=== PATIENT | female | born 1945 | race Caucasian/White ===

== ENCOUNTER 2018-02-13 15:46 | Emergency (ER) | payer MEDICARE, OTHER ==
--- NOTE | 2018-02-13 16:53 | EDM.PDOC ---
ED HPI GENERAL MEDICAL PROBLEM - General Chief Complaint: General Stated Complaint: TRIPPED HURT HEAD, WRIST AND PINKY ON RT SIDE Time Seen by Provider: 02/13/18 16:00 Source of Information: Reports: Patient History Limitations: Reports: No Limitations - History of Present Illness INITIAL COMMENTS - FREE TEXT/NARRATIVE: 72-year-old woman who was helping her daughter move out of her residence. As she was going down steps she fell forward onto the cement. No loss of consciousness. She has mild headache no neck pain. And has a contusion laceration right frontal region is bleeding moderately and has a kerlix circumferential wrap around her head to stem the bleeding. No compromise of vision or trauma to her lower extremities. No previous CVA or TIA. She is on aspirin for anticoagulation as mitral valve prolapse and has pain in her right proximal fifth finger was dislocation of the PIP joint. No loss of sensation or finger. She denies chest pain other extremity to pain she has is total knee arthroplasty left side without pain as a superficial abrasion right knee. Tetanus is indeterminant Location: Reports: Head Severity: Mild Improves with: Reports: None Worsens with: Reports: None Associated Symptoms: Reports: No Other Symptoms - Related Data Allergies Allergy/AdvReac Type Severity Reaction Status Date / Time No Known Allergies Allergy Verified 02/13/18 16:06 Home Meds: Home Meds .Glipizide 1 tab PO BID 02/13/18 [History] Lisinopril 10 mg PO BEDTIME 02/13/18 [History] amLODIPine Besylate [Norvasc] 5 mg PO DAILY 02/13/18 [History] metFORMIN [Glucophage] 1,000 mg PO BIDMEALS 02/13/18 [History] ED ROS GENERAL - Review of Systems Review Of Systems: See Below Constitutional: Reports: Other (Headache) HEENT: Reports: Other Respiratory: Reports: No Symptoms Cardiovascular: Reports: No Symptoms Endocrine: Reports: No Symptoms GI/Abdominal: Reports: No Symptoms : Reports: No Symptoms, Incontinence (Mild headache with fall and pain frontal area of the contusion/laceration of her forehead) Musculoskeletal: Reports: No Symptoms Skin: Reports: No Symptoms Neurological: Reports: No Symptoms, Headache Psychiatric: Reports: No Symptoms Hematologic/Lymphatic: Reports: No Symptoms Immunologic: Reports: No Symptoms ED EXAM, GENERAL - Physical Exam Exam: See Below Free Text/Narrative:: This pleasant 72-year-old woman has mild pain discomfort and bleeding is arterial nature from a small arterial that periodically spurts if there is no pressured placed on the right usual forehead 3 cm laceration last contusion Exam Limited By: No Limitations General Appearance: Alert, Mild Distress Eye Exam: Bilateral Eye: Normal Inspection Ear Exam: Bilateral Ear: Auricle Normal, Canal Normal, TM normal Nose: Normal Inspection, Normal Mucosa, No Blood Throat/Mouth: Normal Inspection, Normal Lips, Normal Teeth, Normal Gums, Normal Oropharynx, Normal Voice Head: Atraumatic, Normocephalic Neck: Normal Inspection, Supple, Non-Tender, Full Range of Motion Respiratory/Chest: No Respiratory Distress, Lungs Clear, Normal Breath Sounds, No Accessory Muscle Use, Chest Non-Tender Cardiovascular: Normal Peripheral Pulses, Regular Rate, Rhythm, No Edema, No Gallop, No JVD, No Murmur, No Rub Peripheral Pulses: 1+: Brachial (L), Brachial (R), Dorsalis Pedis (L), Dorsalis Pedis (R) GI/Abdominal: Normal Bowel Sounds, Soft, Non-Tender, No Organomegaly, No Distention, No Abnormal Bruit, No Mass, Pelvis Stable (Female) Exam: Deferred Rectal (Female) Exam: Deferred Back Exam: Normal Inspection Extremities: Normal Inspection, No Pedal Edema, Normal Capillary Refill, Other Neurological: Alert, Oriented, CN II-XII Intact, Normal Cognition, Normal Gait, Normal Reflexes, No Motor/Sensory Deficits Psychiatric: Normal Affect ED GENERAL MEDICAL PROCEDURES - Additional/Other Procedure(s) Other (Free Text) Procedure(s): Right frontal laceration 3 cm long is horizontal in character and has above that a small superficial crush laceration has mild separation of the tissue which is 2 centimeters long. The wound was cleansed then injected lidocaine 1% epinephrine closed with 5 stitches interrupted 4-0 Ethilon. Patient tolerated procedure well. Course - Vital Signs Last Recorded V/S: Last Vital Signs Temp 36.6 C 02/13/18 18:15 Pulse 74 02/13/18 18:15 Resp 16 02/13/18 18:15 BP 159/62 H 02/13/18 18:15 Pulse Ox 100 02/13/18 18:15 - Orders/Labs/Meds Orders: Active Orders 24 hr Category Date Time Status Vaccines to be Administered [RC] PER UNIT ROUTINE Care 02/13/18 17:06 Active Elbow 2V Rt [CR] Stat Exams 02/13/18 17:22 Taken Fingers Fifth Digit Lt F4 [CR] Stat Exams 02/13/18 17:22 Taken Hand Comp Min 3V Rt [CR] Stat Exams 02/13/18 16:30 Taken Head wo Cont [CT] Stat Exams 02/13/18 17:22 Taken Meds: Medications Discontinued Medications Generic Name Dose Route Start Last Admin Trade Name Taty PRN Reason Stop Dose Admin Tetanus/Diphtheria Toxoids 0.5 ml 02/13/18 17:05 02/13/18 17:25 Tenivac IM 02/13/18 17:06 0.5 ml .ONCE ONE Administration Departure - Departure Time of Disposition: 18:20 Disposition: Home, Self-Care 01 Clinical Impression: Dislocation, finger, interphalangeal joint Qualifiers: Encounter type: initial encounter Qualified Code(s): S63.279A - Dislocation of unspecified interphalangeal joint of unspecified finger, initial encounter Concussion Qualifiers: Encounter type: initial encounter Loss of consciousness presence/duration: without LOC Qualified Code(s): S06.0X0A - Concussion without loss of consciousness, initial encounter Laceration of face without complication Qualifiers: Encounter type: initial encounter Qualified Code(s): S01.81XA - Laceration without foreign body of other part of head, initial encounter - Discharge Information *PRESCRIPTION DRUG MONITORING PROGRAM REVIEWED*: Not Applicable *COPY OF PRESCRIPTION DRUG MONITORING REPORT IN PATIENT JOSÉ: Not Applicable Instructions: Head Injury, Adult, Laceration Care, Adult, Finger or Thumb Dislocation, Laceration Care, Adult, [id number] Referrals: PCP,Not In Area [Primary Care Provider] - Forms: ED Department Discharge Additional Instructions: Have a concussion. Concussion instructions will be sent home with him. The laceration stitches stay in for 7 day. Normally we keep the stitches in for 5 days (younger degeneration) but yours can be removed in 7 days. Apply bacitracin daily to the wound to provide good healing. Use Tylenol 1000 mg every 6 hours and you can use 600 mg ibuprofen with that ( use the latter if you don't have kidney, liver, or gastric problems). You may have a headache and treat that with Tylenol 1000 mg every 6 hours. Follow-up with your doctor in 7 days earlier if worse. - My Orders Last 24 Hours: My Active Orders 02/13/18 16:30 Hand Comp Min 3V Rt [CR] Stat 02/13/18 17:06 Vaccines to be Administered [RC] PER UNIT ROUTINE 02/13/18 17:22 Elbow 2V Rt [CR] Stat Fingers Fifth Digit Lt F4 [CR] Stat Head wo Cont [CT] Stat - Assessment/Plan Last 24 Hours: My Active Orders 02/13/18 16:30 Hand Comp Min 3V Rt [CR] Stat 02/13/18 17:06 Vaccines to be Administered [RC] PER UNIT ROUTINE 02/13/18 17:22 Elbow 2V Rt [CR] Stat Fingers Fifth Digit Lt F4 [CR] Stat Head wo Cont [CT] Stat
[2018-02-13] MEDS ORDERED: Diphtheria/Tetanus Toxoids,Adult (Td) 0.5 ML SDV IM ONE (17:05)
--- NOTE | 2018-02-16 10:30 | CR ---
INDICATION: Fell - trauma. RIGHT ELBOW: Three views of the right elbow revealed evidence of a radial head fracture with depression of the lateral joint surface fracture fragment. Joint effusion is also noted - capsular distention is seen. Minimal degenerative changes are noted at the medial elbow joint compartment additionally. No other bone or joint abnormality was identified. IMPRESSION: Radial head fracture with slight depression - 1 to 2 mm depression of a fracture fragment, likely represents an acute process, especially since there is a joint effusion. Report was called to Dr. Griffin at 1440 hours on 02/15/[address] Lassiter. PAYTON
--- NOTE | 2018-02-16 10:32 | CR ---
INDICATION: Post reduction. RIGHT FIFTH DIGIT: Three views of the right 5th finger revealed mild degenerative changes at the DIPJ with no definite fracture or dislocation identified. PAYTON
--- NOTE | 2018-02-16 10:39 | CR ---
INDICATION: Fall. RIGHT HAND: Three views of the right hand were obtained 02/13/2018 and revealed what appears to be a subluxation at the PIPJ of the 5th finger with medial angulation at the joint. No gross offset of the bony structures was noted. A true dislocation is not felt to be present. Mild degenerative changes are noted at the DIPJs and are most notable at the 3rd finger. Degenerative changes are also noted at the interphalangeal joint of the thumb. IMPRESSION: Subluxation PIPJ right 5th finger. MAXD
== END 2018-02-13 18:55 | disposition home or self-care (01) ==
LOC: FB.ED 15:46
DX: S06.0X0A Concussion without loss of consciousness, initial encounter (principal); S63.286A Dislocation of proximal interphalangeal joint of right little finger, initial encounter; S01.81XA Laceration without foreign body of other part of head, initial encounter; Z23 Encounter for immunization; Z79.899 Other long term (current) drug therapy; W10.9XXA Fall (on) (from) unspecified stairs and steps, initial encounter
CPT/HCPCS: 12001; 12013; 70450; 73070-RT; 73130-RT; 73140-F4; 90471; 90714; 99284; 99285